=== PATIENT | male | born 1990 | race African-American/Black ===

== ENCOUNTER → 2018-01-25 | Outpatient (CLI) | payer OTHER ==
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
== END ==
LOC: RADMRIMAIN 16:49
PROVIDERS: ATTEND Psychiatry & Neurology Neurology
DX: M51.27 Other intervertebral disc displacement, lumbosacral region (principal); M47.816 Spondylosis without myelopathy or radiculopathy, lumbar region; M46.96 Unspecified inflammatory spondylopathy, lumbar region; M54.6 Pain in thoracic spine
CPT/HCPCS: 72146; 72148